=== PATIENT | male | born 1960 | race Caucasian/White ===

== ENCOUNTER 2018-03-31 05:18 | Day surgery (SDC) | payer OTHER ==
[2018-03-24 08:47] LABS: HEMATOCRIT 48.2 % (37.9-51.0); HEMOGLOBIN 16.1 g/dL (13.5-17.0); MEAN CORPUSCULAR HGB CONC 33.4 g/dL (32.0-36.0); MEAN CORPUSCULAR VOLUME 90 fl (80-97); PLATELET COUNT 256 10^3/uL (150-450); RED BLOOD COUNT 5.36 10^6/uL (4.35-5.55)
[2018-03-24 11:18] LABS: ANION GAP 13 (5-19); BLOOD UREA NITROGEN 11 mg/dL (7-20); CALCIUM 9.9 mg/dL (8.4-10.2); CARBON DIOXIDE 28 mmol/L (22-30); CHLORIDE 103 mmol/L (98-107); GLUCOSE 114 mg/dL (75-110); POTASSIUM 4.4 mmol/L (3.6-5.0); SODIUM 144.1 mmol/L (137-145)
--- NOTE | 2018-03-24 20:51 | EKG REPORT ---
SEVERITY:- OTHERWISE NORMAL ECG - SINUS BRADYCARDIA : Confirmed by: Harjit Voss 24-Mar-2018 20:50:56
[~2018-03-31 05:18] MED LIST: ACETAMINOPHEN 325 MG TABLET PO PRN; CEFAZOLIN 2 GM/D5W RTU 2 GM/50 ML RTUPB IV PRN; LACTATED RINGERS 1000 ML IV PRN; LIDOCAINE 0.5% INJ-PF (5 MG/ML) 50 ML SDV SUBCUT PRN
[2018-03-31] MEDS ORDERED: FENTANYL CITRATE INJ/PF 100 MCG/2 ML AMPUL ONE (06:17)
[2018-03-31] MEDS ORDERED: LIDOCAINE 2% INJ-PF (20 MG/ML) 10 ML AMPUL ONE (06:17)
[2018-03-31] MEDS ORDERED: MIDAZOLAM 2 MG/2 ML INJ ONE (06:18)
[2018-03-31] MEDS ORDERED: DEXAMETHASONE SOD PHOSPHATE INJ 4 MG/1 ML VIAL ONE (06:18)
[2018-03-31] MEDS ORDERED: ACETAMINOPHEN IV ONE (06:19)
[2018-03-31] MEDS ORDERED: BUPIVACAINE HCL 0.25 % INJ/PF (2.5 MG/1 ML) 30 ML VIAL ONE (06:37)
[2018-03-31] MEDS ORDERED: PROPOFOL INJ 200 MG/20 ML VIAL IV ONE (06:54)
[2018-03-31] MEDS ORDERED: FAMOTIDINE INJ/PF 20 MG/2 ML SDV IV ONE (07:18)
[2018-03-31] MEDS ORDERED: MORPHINE SULFATE 10 MG/ML INJ IV PRN (08:23)
[2018-03-31] MEDS ORDERED: PROMETHAZINE HCL INJ 25 MG/1 ML VIAL IV PRN ×2 (08:23)
[2018-03-31] MEDS ORDERED: FENTANYL CITRATE INJ/PF 100 MCG/2 ML AMPUL IV PRN ×3 (08:23)
[2018-03-31] MEDS ORDERED: ONDANSETRON HCL INJ/PF 4 MG/2 ML SDV IV PRN (08:23)
[2018-03-31] MEDS ORDERED: DIPHENHYDRAMINE HCL 50 MG/ML VIAL IV PRN (08:23)
[2018-03-31] MEDS ORDERED: MEPERIDINE HCL/PF INJ 25 MG/1 ML DISP.SYRIN IV PRN (08:23)
[2018-03-31] MEDS: FENTANYL CITRATE INJ/PF 100 MCG/2 ML AMPUL ONE ×2 (10:38→10:45)
--- NOTE | 2018-03-31 11:04 | Operative Report ---
Nonrecallable Operative Report DATE OF SURGERY: 03/31/18 PREOPERATIVE DIAGNOSIS: 1. Symptomatic umbilical hernia. 2. Right inguinal hernia POSTOPERATIVE DIAGNOSIS: Same as above OPERATION: 1. Robot-assisted laparoscopic right inguinal hernia repair with mesh. 2. Open umbilical hernia pair with mesh SURGEON: JAZ LONDON ANESTHESIA: GA TISSUE REMOVED OR ALTERED: none COMPLICATIONS: None apparent ESTIMATED BLOOD LOSS: Minimal PROCEDURE: Drains/implants: #1. right sided large 3 DMax inguinal hernia mesh. 2. [address] umbilical hernia mesh Procedure in detail: After informed consent was obtained, the patient was laid in the supine position in the operating room. The area of the abdomen was prepped and draped in a normal sterile fashion. Incision was created in the supraumbilical position. The fascia was visualized. The linea alba fascia was incised sharply. The abdomen was entered sharply. The balloon trocar was inserted and pneumoperitoneum was achieved. 2 8 mm trochars were placed in the right and left lateral abdominal wall under direct laparoscopic visualization. The robot was then brought over the patient and docked appropriately. I then assumed my position at the surgeon's console. The patient's umbilical hernia defect was readily identified from the intra- abdominal position. Unfortunately, it was close to the camera port for robotic repair. Repair of the right inguinal hernia was then undertaken. The peritoneum was scored 2-3 cm superior to the hernia defect. The preperitoneal space was opened using blunt dissection, sharp dissection, and electrocautery. Great care was taken not to damage or injure the cord structures. Once the hernia sac was freed, the large right-sided 3D max inguinal hernia mesh was placed into the preperitoneal space. It was sutured medially and superiorly using 2-0 Vicryl suture. Once this was completed, the peritoneum was closed over the mesh. The hernia repair appeared in good order. Next the robot was undocked and the trochars were removed. The 8 mm trocar sites were closed using 0 Vicryl suture in simple interrupted fashion with the Endoclose device. The supraumbilical fascia was closed using 0 Vicryl suture in [id number] fashion. The overlying skin was closed using 4-0 Vicryl Rapide suture in subcuticular fashion. Attention was then turned to the repair of the helical hernia defect. Curvilinear incision was created in the infraumbilical position. Dissection was carried down using blunt dissection. The cicatrix was elevated away from the abdominal fascia and divided sharply. The defect was found to be approximately 2 cm. An 8 cm mesh was chosen to adequately cover the defect. The mesh was placed into the abdominal cavity and sutured in 4 quadrants with 0 Prolene mattress sutures. The fascia was then reapproximated using #1 Prolene in [id number] fashion. The cicatrix was tacked to the abdominal fascia using 3-0 Vicryl suture. The overlying skin was closed using 4-0 Vicryl Rapide suture in subcuticular fashion. All sponge, instrument, and needle counts were correct 2. Condition: Stable.
[2018-03-31] MEDS ORDERED: KETOROLAC TROMETHAMINE INJ/PF 30 MG/1 ML SDV ONE (11:05)
--- NOTE | 2018-03-31 11:06 | Discharge Summary ---
Discharge Summary (SDC) - Discharge Final Diagnosis: right inguinal hernia, umbilical hernia Date of Surgery: 03/31/18 Discharge Date: 03/31/18 Condition: Stable Referrals: KATY SHAHID MD [Primary Care Provider] - Discharge Diet: As Tolerated Respiratory Treatments at Home: Deep Breathing/Coughing, Incentive Spirometer Discharge Activity: No Lifting Over 10 Pounds Home Care Assistance: None Needed Report the Following to Your Physician Immediately: Shortness of Breath, Nausea , Vomiting, Increase in Pain, Fever over 101 Degrees, Redness, Swelling, Warmth , Increased Soreness
[2018-03-31] MEDS: HYDROMORPHONE HCL INJ/PF 2 MG/ML AMPULE ONE ×2 (11:10→11:29)
[2018-03-31] MEDS ORDERED: HYDROCODONE/ACETAMINOPHEN 10-325 MG TABLET ONE (12:34)
[2018-03-31 15:05] VITALS: BP 136/82
[2018-03-31] MEDS ORDERED: NEOSTIGMINE METHYLSULFATE 10 MG/10 ML VIAL ONE (15:43)
[2018-03-31] MEDS ORDERED: SUCCINYLCHOLINE CHLORIDE INJ 200 MG/10 ML VIAL ONE (15:43)
[2018-03-31] MEDS ORDERED: ONDANSETRON HCL INJ/PF 4 MG/2 ML SDV ONE (15:43)
[2018-03-31] MEDS ORDERED: VECURONIUM BROMIDE INJ 10 MG VIAL IV ONE (15:43)
[2018-03-31] MEDS ORDERED: GLYCOPYRROLATE INJ 0.4 MG/2 ML VIAL ONE (15:43)
== END 2018-03-31 14:45 | disposition home or self-care (01) ==
LOC: OROUT 05:18
PROVIDERS: ATTEND Surgery
DX: K40.90 Unilateral inguinal hernia, without obstruction or gangrene, not specified as recurrent (principal); K42.9 Umbilical hernia without obstruction or gangrene; I10 Essential (primary) hypertension; K21.9 Gastro-esophageal reflux disease without esophagitis; R00.1 Bradycardia, unspecified; Z79.899 Other long term (current) drug therapy; Z87.891 Personal history of nicotine dependence; Z85.828 Personal history of other malignant neoplasm of skin
CPT/HCPCS: 49585; 49650; S2900; 36415; 80048; 840; 85027; 86850; 86900; 86901; 93005; 93010; J0131; J0330; J0690; J1100; J1170; J1885; J2250; J2405; J2704; J3010; J3490; S0028

== ENCOUNTER → 2019-09-17 | Outpatient (CLI) | payer OTHER ==
--- NOTE | 2019-09-17 09:16 | RADIOLOGY REPORT (SQ) ---
EXAM DESCRIPTION: U/S ABDOMEN LIMITED W/O DOP COMPLETED DATE/TIME: 09/17/2019 8:08 am REASON FOR STUDY: RUQ PAIN (R10.11) R10.11 RIGHT UPPER QUADRANT PAIN COMPARISON: None. TECHNIQUE: Dynamic and static grayscale images acquired of the abdomen and recorded on PACS. Additio nal selected color Doppler and spectral images recorded. LIMITATIONS: None. FINDINGS: PANCREAS: No masses. Visualized pancreatic duct normal caliber. LIVER: No masses. Echotexture normal. LIVER VASCULATURE: Normal directional flow of the main portal vein and hepatic veins. GALLBLADDER: No stones. Normal wall thickness. No pericholecystic fluid. ULTRASOUND-DETECTED TRIMBLE'S SIGN: Negative. INTRAHEPATIC DUCTS AND COMMON DUCT: CBD and intrahepatic ducts normal caliber. No filling defects. INFERIOR VENA CAVA: Normal flow. AORTA: No aneurysm. RIGHT KIDNEY: Normal size. Normal echogenicity. No solid or suspicious masses. 1.2 cm cyst. No hyd ronephrosis. No calcifications. PERITONEAL AND RIGHT PLEURAL SPACE: No ascites or effusions. OTHER: No other significant findings. IMPRESSION: No significant finding in the right upper quadrant. TECHNICAL DOCUMENTATION: JOB ID: [id number] [employer]- All Rights Reserved Reading location - IP/workstation name: [email or web address]
--- NOTE | 2019-09-17 10:50 | RADIOLOGY REPORT (SQ) ---
EXAM DESCRIPTION: NM HIDA SCAN WITH CCK COMPLETED DATE/TIME: 09/17/2019 10:24 am REASON FOR STUDY: RUQ PAIN (R10.11) R10.11 RIGHT UPPER QUADRANT PAIN COMPARISON: Right upper quadrant ultrasound RADIONUCLIDE AND DOSE: DOSAGE RADIONUCLIDE: 5.5 millicuries Tc99m Mebrofenin. DOSAGE CCK: 2.0 micrograms. DOSAGE MORPHINE: Not required. The route of agent administration: Intravenous TECHNIQUE: Serial imaging right upper quadrant up to 60 minutes following injection of radionuclide. CCK injected after gallbladder visualized. LIMITATIONS: None. FINDINGS: LIVER: Normal visualization. Activity clears by 30 minutes. INTRAHEPATIC BILE DUCTS: Normal visualization. COMMON BILE DUCT: Normal visualization. GALLBLADDER: Normal visualization. Calculated ejection fraction of 81%. Normal range is greater th an 35%. PHYSICAL RESPONSE: Patients presenting complaint was reproduced. OTHER: No other significant finding. IMPRESSION: No scintigraphic evidence of cystic duct or common duct obstruction. IV CCK prompted a normal gallbladder ejection fraction. IV CCK also reproduce the patient's right up per quadrant pain TECHNICAL DOCUMENTATION: JOB ID: [id number] [employer]- All Rights Reserved Reading location - IP/workstation name: [email or web address]
== END ==
LOC: RAD 07:26
PROVIDERS: ATTEND Surgery
DX: R10.11 Right upper quadrant pain (principal)
CPT/HCPCS: 76705; 78227; J2805; A9537; Q9969